=== PATIENT | female | born 1955 | race Caucasian/White ===

== ENCOUNTER → 2017-04-25 | Outpatient (CLI) | payer BC ==
--- NOTE | 2017-04-26 13:15 | MG ---
HISTORY: SCREENING Comparison: March 18, 2014 FINDINGS: Bilateral CC and MLO projections of the right and left breast were obtained utilizing full field and pushback technique with bilateral sub pectoral saline implants appearing grossly intact. Scattered f ibroglandular tissue is seen to be present without significant interval change. No suspicious manisha ectural distortion, mass or clustered microcalcifications can be observed to suggest malignancy. No skin thickening or nipple retraction is appreciated. No pathological lymphadenopathy can be identif ied. Benign-appearing calcifications and nodules are noted within the right and left breast. IMPRESSION: NO RADIOGRAPHIC EVIDENCE OF MALIGNANCY. ACR CATEGORY 2 - benign findings. FOLLOW-UP EXAM 1 YEAR. Diagnostic CAD was utilized and reviewed. * 0 (ZERO) - ASSESSMENT INCOMPLETE; ADDITIONAL IMAGING IS NEEDED. * 1/1 (ONE) - NEGATIVE. * 2/II (TWO) - BENIGN FINDINGS. * 3/III (THREE) - PROBABLY BENIGN FINDING; SHORT INTERVAL FOLLOW-UP SUGGESTED. * 4/IV (FOUR) - SUSPICIOUS ABNORMALITY; BIOPSY SHOULD BE CONSIDERED. * 5/V - HIGHLY SUSPICIOUS OF MALIGNANCY; BIOPSY SHOULD BE PERFORMED. A NEGATIVE X-RAY REPORT SHOULD NOT DELAY BIOPSY IF A DOMINANT OR CLINICALLY SUSPICIOUS MASS IS PRESENT; 4 TO 8 PERCENT OF CANCERS ARE NOT IDENTIFIED BY X-RAY. A NEGA TIVE REPORT MAY REINFORCE THE CLINICAL IMPRESSION. ADENOSIS AND DENSE BREASTS MAY OBSCURE AN UNDERLY ING NEOPLASM. Reported By:
== END ==
LOC: RAD 09:46
PROVIDERS: ATTEND Family Medicine
DX: Z12.31 Encounter for screening mammogram for malignant neoplasm of breast (principal)
CPT/HCPCS: 77067

== ENCOUNTER 2020-03-04 13:27 | Observation (INO) ==
[2020-03-04 13:32] LABS: ABG ALLEN TEST POS; ABG BASE EXCESS 0.8 mmol/L (-2.0-2.0)
[2020-03-04] MEDS ORDERED: IVERMECTIN PO ONE (13:51)
[2020-03-04] MEDS ORDERED: NS 1000 ML 1,000 ML IV SCH (14:00)
[2020-03-04 14:28] LABS: BASOPHILS % (AUTO) 0.5 % (0.2-1.0); EOSINOPHILS % (AUTO) 0.2 % (0.9-2.9); LYMPHOCYTES # (AUTO) 2.1 X10^3/uL (1.3-2.9); LYMPHOCYTES % (AUTO) 26.8 % (21.0-51.0); MEAN CORPUSCULAR HEMOGLOBIN 30.3 pg (27.0-34.0); MEAN CORPUSCULAR HGB CONC 34.2 g/dL (33.0-35.0); MEAN CORPUSCULAR VOLUME 88.5 fL (80.0-100.0); MEAN PLATELET VOLUME 8.4 fL (7.4-11.0); MONOCYTES # (AUTO) 0.8 x10^3/uL (0.3-0.8); MONOCYTES % (AUTO) 9.4 % (0.0-13.0); NEUTROPHILS # (AUTO) 5.1 x10^3/uL (2.2-4.8); NEUTROPHILS % (AUTO) 63.1 % (42.0-75.0); PLATELET COUNT 262 X10^3/uL (150.0-450.0); RED BLOOD COUNT 4.63 X10^6/uL (3.5-5.4); RED CELL DISTRIBUTION WIDTH 13.2 % (11.6-16.5)
[2020-03-04 14:49] LABS: ALANINE AMINOTRANSFERASE 35 Units/L (12-78); ALBUMIN 3.5 g/dL (3.4-5.0); ALKALINE PHOSPHATASE 71 Units/L (46-116); ASPARTATE AMINO TRANSFERASE 31 Units/L (15-37); BLOOD UREA NITROGEN 24 mg/dL (7-18); CALCIUM 10.1 mg/dL (8.5-10.1); CARBON DIOXIDE 27.1 mmol/L (21-32); CHLORIDE 103 mmol/L (98-107); SODIUM 139 mmol/L (136-145); TOTAL PROTEIN 7.5 g/dL (6.4-8.2); TROPONIN I < 0.02 ng/mL (0-1.5); eGFR NON BLACK RACES 59 (>60)
[2020-03-04 16:05] VITALS: BMI 32.5
[2020-03-04] MEDS ORDERED: IVERMECTIN ONE (16:10)
[2020-03-04] MEDS ORDERED: VIBRAMYCIN PO ONE (16:10)
[2020-03-04] MEDS ORDERED: NS 1000 ML 1,000 ML ONE (16:11)
[2020-03-04] MEDS ORDERED: DECADRON TAB ONE (16:11)
[2020-03-04] MEDS ORDERED: ZINC SULFATE ONE (16:11)
[2020-03-04] MEDS ORDERED: LOVENOX INJ 30 MG SYR SC ONE (16:11)
[2020-03-04] MEDS ORDERED: NS 100 ML IV 100 ML IV ONE (16:13)
[2020-03-04] MEDS: ASCORBIC ACID INJ MULTI-DOSE VIAL 1,500 MG in NS 100 ML IV 100 ML IV SCH ×3 (16:15→22:40)
[2020-03-04] MEDS: IVERMECTIN PO SCH (16:17)
[2020-03-04] MEDS: DECADRON TAB PO SCH (16:17)
[2020-03-04] MEDS: LIPITOR TAB 40 MG PO SCH (16:18)
[2020-03-04] MEDS: LOVENOX INJ 30 MG SYR SC SCH ×2 (16:19→22:41)
[2020-03-04] MEDS: TRICOR TAB 160 MG PO SCH (16:20)
[2020-03-04] MEDS: VIBRAMYCIN PO SCH ×2 (16:20→22:42)
[2020-03-04] MEDS: ZINC SULFATE PO SCH ×2 (16:30→22:42)
[2020-03-04] MEDS: VITAMIN D (1.25MG) PO SCH (16:30)
[2020-03-04] MEDS: VITAMIN A PO SCH (16:42)
[2020-03-04] MEDS: PULMICORT NEB TX 0.5 MG NEB SCH (21:39)
[2020-03-04] MEDS: DUONEB 0.5 MG/3 MG (3 mL) NEB SCH (21:39)
[2020-03-04] MEDS: PEPCID TAB 20 MG PO SCH (22:41)
[2020-03-05] MEDS ORDERED: ASCORBIC ACID INJ MULTI-DOSE VIAL IV ONE ×2 (02:53→08:17)
[2020-03-05] MEDS ORDERED: NS 100 ML IV 100 ML IV ONE ×2 (02:53→08:17)
[2020-03-05] MEDS: ASCORBIC ACID INJ MULTI-DOSE VIAL 1,500 MG in NS 100 ML IV 100 ML IV SCH ×2 (03:18→08:21)
[2020-03-05] MEDS: THIAMINE HCL INJ IVP SCH ×2 (04:43→08:31)
--- NOTE | 2020-03-05 06:25 | RAD ---
HISTORYSOB, COUGHING, FATIQUE WORSENING THE PAST 5 DAYS. COVID POSITIVE ON FebruaryUDYCHEST, 1 VIEWCOMPARISONFINDINGSThe trachea is midline. The cardiac silhouette is unremarkable . The lungs are clear without focal infiltrate or effusion. The bony thorax is unremarkable.IMPRESSIONNo acute cardiopulmonary disease.Electronically signed by: Guzman Figueredo (Mar 05, 2020 06:24:21)
[2020-03-05] MEDS ORDERED: PEPCID TAB 20 MG ONE (08:15)
[2020-03-05] MEDS ORDERED: IVERMECTIN ONE (08:15)
[2020-03-05] MEDS ORDERED: VIBRAMYCIN PO ONE (08:15)
[2020-03-05] MEDS ORDERED: DECADRON TAB ONE (08:15)
[2020-03-05] MEDS ORDERED: LOVENOX INJ 30 MG SYR SC ONE (08:16)
[2020-03-05] MEDS ORDERED: ZINC SULFATE ONE (08:16)
[2020-03-05] MEDS: DECADRON TAB PO SCH (08:21)
[2020-03-05] MEDS: IVERMECTIN PO SCH (08:22)
[2020-03-05] MEDS: ZINC SULFATE PO SCH (08:25)
[2020-03-05] MEDS: PEPCID TAB 20 MG PO SCH (08:26)
[2020-03-05] MEDS: LOVENOX INJ 30 MG SYR SC SCH (08:27)
[2020-03-05] MEDS: VIBRAMYCIN PO SCH (08:27)
[2020-03-05] MEDS: VITAMIN D (1.25MG) PO SCH (08:47)
[2020-03-05] MEDS: TRICOR TAB 160 MG PO SCH (08:47)
[2020-03-05] MEDS: LIPITOR TAB 40 MG PO SCH (08:47)
[2020-03-05] MEDS: VITAMIN A PO SCH (08:47)
[2020-03-05 09:31] LABS: ALANINE AMINOTRANSFERASE 28 Units/L (12-78); ALBUMIN 3.2 g/dL (3.4-5.0); ALKALINE PHOSPHATASE 73 Units/L (46-116); ASPARTATE AMINO TRANSFERASE 30 Units/L (15-37); BASOPHILS % (AUTO) 0.2 % (0.2-1.0); BLOOD UREA NITROGEN 22 mg/dL (7-18); CALCIUM 9.9 mg/dL (8.5-10.1); CARBON DIOXIDE 22.2 mmol/L (21-32); CHLORIDE 103 mmol/L (98-107); COR CA(FOR HYPOALB) 10.5 mg/dL (8.5-10.1); COR NA(FOR HYPERGLY) 141 mmol/L (136-145); CREATININE 1.02 mg/dL (0.55-1.02); EOSINOPHILS % (AUTO) 0.1 % (0.9-2.9); HEMATOCRIT 41.1 % (36.0-47.0); HEMOGLOBIN 13.6 g/dL (12.0-16.0); LYMPHOCYTES # (AUTO) 1.3 X10^3/uL (1.3-2.9); LYMPHOCYTES % (AUTO) 27.3 % (21.0-51.0); MEAN CORPUSCULAR HEMOGLOBIN 30.1 pg (27.0-34.0); MEAN CORPUSCULAR HGB CONC 33.2 g/dL (33.0-35.0); MEAN CORPUSCULAR VOLUME 90.6 fL (80.0-100.0); MEAN PLATELET VOLUME 8.8 fL (7.4-11.0); MONOCYTES # (AUTO) 0.3 x10^3/uL (0.3-0.8); MONOCYTES % (AUTO) 6.1 % (0.0-13.0); NEUTROPHILS # (AUTO) 3.1 x10^3/uL (2.2-4.8); NEUTROPHILS % (AUTO) 66.3 % (42.0-75.0); PLATELET COUNT 284 X10^3/uL (150.0-450.0); RED BLOOD COUNT 4.54 X10^6/uL (3.5-5.4); RED CELL DISTRIBUTION WIDTH 13.5 % (11.6-16.5); SODIUM 139 mmol/L (136-145); TOTAL PROTEIN 7.4 g/dL (6.4-8.2); WHITE BLOOD COUNT 4.7 X10^3/uL (3.6-10.0); eGFR NON BLACK RACES 58 (>60)
[2020-03-05] MEDS: DUONEB 0.5 MG/3 MG (3 mL) NEB SCH (09:59)
[2020-03-05] MEDS: PULMICORT NEB TX 0.5 MG NEB SCH (09:59)
[2020-03-05 12:38] VITALS: BP 132/69
[2020-03-06] MEDS ORDERED: VITAMIN D3 125 mcg (5,000 UNITS) PO SCH (09:00)
[2020-03-06] MEDS ORDERED: VITAMIN A PO SCH (09:00)
== END 2020-03-05 14:02 | disposition home or self-care (01) ==
LOC: OBS
PROVIDERS: ADMIT Obstetrics & Gynecology Obstetrics; ATTEND Obstetrics & Gynecology Obstetrics

== ENCOUNTER 2022-04-02 06:26 | Observation (INO) ==
[2022-04-02] MEDS ORDERED: ANCEF VIAL 1 GRAM ONE (06:40)
[2022-04-02] MEDS ORDERED: NS 100 ML IV 100 ML ONE (06:41)
[2022-04-02] MEDS: LR 1,000 ML IV 0 ML IV ONE ×2 (06:41)
[2022-04-02] MEDS ORDERED: NS 1,000 ML IV 1,000 ML ONE ×2 (06:53→08:28)
[2022-04-02] MEDS ORDERED: BACTROBAN TOPICAL OINT ONE (07:15)
[2022-04-02] MEDS ORDERED: PEPCID 20 MG VIAL ONE (07:28)
[2022-04-02] MEDS ORDERED: ZOFRAN INJ 4 MG VIAL ONE (07:28)
[2022-04-02] MEDS ORDERED: FENTANYL VIAL INJ 100 mcg ONE (07:38)
[2022-04-02] MEDS ORDERED: VERSED ONE (07:38)
[2022-04-02] MEDS ORDERED: KETAMINE 50 MG/5 ML-NACL SYRNG ONE (07:38)
[2022-04-02] MEDS ORDERED: ULTANE GAS IN ONE (07:39)
[2022-04-02] MEDS ORDERED: ZEMURON 100 MG VIAL ONE (07:46)
[2022-04-02] MEDS ORDERED: DECADRON INJ ONE (07:46)
[2022-04-02] MEDS ORDERED: XYLOCAINE 2 % (PLAIN) ONE (07:47)
[2022-04-02] MEDS ORDERED: DIPRIVAN VIAL 20 ML ONE (07:47)
[2022-04-02] MEDS ORDERED: OFIRMEV IV 1000 MG VIAL 1,000 MG/100 ML VIAL IV ONE (07:47)
[2022-04-02] MEDS ORDERED: BRIDION ONE (07:47)
[2022-04-02] MEDS ORDERED: LACRI-LUBE S.O.P. ONE (07:54)
[2022-04-02] MEDS ORDERED: DILAUDID INJ ONE (08:12)
[2022-04-02] MEDS ORDERED: TORADOL 30 MG VIAL ONE (09:03)
[2022-04-02] MEDS ORDERED: BARHEMSYS INJ IVP PRN (09:13)
[2022-04-02] MEDS ORDERED: BENADRYL INJ 50 MG VIAL IVP PRN (09:13)
[2022-04-02] MEDS ORDERED: DILAUDID INJ IVP PRN (09:13)
[2022-04-02] MEDS ORDERED: ZOFRAN INJ 4 MG VIAL IVP PRN (09:13)
[2022-04-02] MEDS: D5 1/2 NS 1,000 ML 1,000 ML IV SCH ×2 (11:34→18:53)
[2022-04-02] MEDS: MORPHINE SULFATE INJ 2 MG INJ IVP PRN (23:15)
[2022-04-03] MEDS: D5 1/2 NS 1,000 ML 1,000 ML IV SCH ×3 (01:55→20:45)
[2022-04-03 05:07] LABS: BASOPHILS % (AUTO) 0.1 % (0.2-1.0); EOSINOPHILS % (AUTO) 0.3 % (0.9-2.9); HEMATOCRIT 32.5 % (36.0-47.0); HEMOGLOBIN 11.2 g/dL (12.0-16.0); LYMPHOCYTES # (AUTO) 2.1 X10^3/uL (1.3-2.9); LYMPHOCYTES % (AUTO) 20.4 % (21.0-51.0); MEAN CORPUSCULAR HEMOGLOBIN 30.1 pg (27.0-34.0); MEAN CORPUSCULAR HGB CONC 34.6 g/dL (33.0-35.0); MEAN CORPUSCULAR VOLUME 86.8 fL (80.0-100.0); MEAN PLATELET VOLUME 8.2 fL (7.4-11.0); MONOCYTES # (AUTO) 0.7 x10^3/uL (0.3-0.8); MONOCYTES % (AUTO) 6.5 % (0.0-13.0); NEUTROPHILS # (AUTO) 7.6 x10^3/uL (2.2-4.8); NEUTROPHILS % (AUTO) 72.7 % (42.0-75.0); RED BLOOD COUNT 3.74 X10^6/uL (3.5-5.4); WHITE BLOOD COUNT 10.4 X10^3/uL (3.6-10.0)
[2022-04-03 05:19] LABS: ALANINE AMINOTRANSFERASE 30 Units/L (12-78); ALBUMIN 2.8 g/dL (3.4-5.0); ALKALINE PHOSPHATASE 48 Units/L (46-116); ASPARTATE AMINO TRANSFERASE 27 Units/L (15-37); BLOOD UREA NITROGEN 9 mg/dL (7-18); CALCIUM 8.1 mg/dL (8.5-10.1); CARBON DIOXIDE 26.6 mmol/L (21-32); CHLORIDE 111 mmol/L (98-107); COR CA(FOR HYPOALB) 9.1 mg/dL (8.5-10.1); CREATININE 0.59 mg/dL (0.55-1.02); SODIUM 144 mmol/L (136-145); TOTAL PROTEIN 5.6 g/dL (6.4-8.2); eGFR NON BLACK RACES > 60 (>60)
[2022-04-03] MEDS: MORPHINE SULFATE INJ 2 MG INJ IVP PRN ×2 (06:10→20:17)
[2022-04-03] MEDS ORDERED: NORCO 5/325 MG TAB PO PRN (07:25)
--- NOTE | 2022-04-03 07:52 | DR.PROGNOT ---
HOSPITAL PROGRESS NOTE Progress Note for Day of: Progress Note Date: 04/03/22 Chief Complaint Chief Complaint: somewhat anxious otherwise doing fairly well . Bilirubin , LFT are all normal .. moderate drainage in TELMA . Febrile . Past Medical Family Social History Allergies: Allergies No Known Drug Allergies Allergy (Verified 03/04/20 13:54) Vital Signs Vital Signs: Temperature 98.4 F Pulse Rate 74 Respiratory Rate 14 Blood Pressure [Right Arm] 132/69 Blood Pressure 126/58 O2 Sat by Pulse Oximetry 99 Physical Exam Oriented: Normal GI:Auscultation: Normal GI: Tenderness: Other (soft, flat abdomen withmoderate RUQ tenderness ) Mood Description: Calm Speech Pattern: Clear Laboratory and Diagnostics Result Diagrams: 04/03/22 04:30 04/03/22 04:30 Labs: Laboratory WBC 10.4 X10^3/uL (3.6-10.0) H 04/03/22 04:30 RBC 3.74 X10^6/uL (3.5-5.4) 04/03/22 04:30 Hgb 11.2 g/dL (12.0-16.0) L 04/03/22 04:30 Hct 32.5 % (36.0-47.0) L 04/03/22 04:30 MCV 86.8 fL (80.0-100.0) 04/03/22 04:30 MCH 30.1 pg (27.0-34.0) 04/03/22 04:30 MCHC 34.6 g/dL (33.0-35.0) 04/03/22 04:30 RDW 14.0 % (11.6-16.5) 04/03/22 04:30 Plt Count 295 X10^3/uL (150.0-450.0) 04/03/22 04:30 MPV 8.2 fL (7.4-11.0) 04/03/22 04:30 Neut % (Auto) 72.7 % (42.0-75.0) 04/03/22 04:30 Lymph % (Auto) 20.4 % (21.0-51.0) L 04/03/22 04:30 [place] % (Auto) 6.5 % (0.0-13.0) 04/03/22 04:30 Eos % (Auto) 0.3 % (0.9-2.9) L 04/03/22 04:30 Baso % (Auto) 0.1 % (0.2-1.0) L 04/03/22 04:30 Neut # (Auto) 7.6 x10^3/uL (2.2-4.8) H 04/03/22 04:30 Lymph # (Auto) 2.1 X10^3/uL (1.3-2.9) 04/03/22 04:30 [place] # (Auto) 0.7 x10^3/uL (0.3-0.8) 04/03/22 04:30 Eos # (Auto) 0.0 x10^3/uL (0.0-0.2) 04/03/22 04:30 Baso # (Auto) 0.0 X10^3/uL (0.0-0.1) 04/03/22 04:30 Absolute Nucleated RBC 0.0 /100WBC 04/03/22 04:30 Sodium 144 mmol/L (136-145) 04/03/22 04:30 Corrected Sodium TNP 04/03/22 04:30 Potassium 3.5 mmol/L (3.5-5.1) 04/03/22 04:30 Chloride 111 mmol/L (98-107) H 04/03/22 04:30 Carbon Dioxide 26.6 mmol/L (21-32) 04/03/22 04:30 BUN 9 mg/dL (7-18) 04/03/22 04:30 Creatinine 0.59 mg/dL (0.55-1.02) 04/03/22 04:30 Est GFR (MDRD) Af Amer > 60 (>60) 04/03/22 04:30 Est GFR (MDRD) Non-Af > 60 (>60) 04/03/22 04:30 Glucose 104 mg/dL (65-99) H 04/03/22 04:30 POC Glucose (mg/dL) 141 mg/dL (65-99) H 04/02/22 06:52 Calcium 8.1 mg/dL (8.5-10.1) L 04/03/22 04:30 Corrected Calcium 9.1 mg/dL (8.5-10.1) 04/03/22 04:30 Total Bilirubin 0.30 mg/dL (0.2-1.0) 04/03/22 04:30 AST 27 Units/L (15-37) 04/03/22 04:30 ALT 30 Units/L (12-78) 04/03/22 04:30 Alkaline Phosphatase 48 Units/L (46-116) 04/03/22 04:30 Total Protein 5.6 g/dL (6.4-8.2) L 04/03/22 04:30 Albumin 2.8 g/dL (3.4-5.0) L 04/03/22 04:30 Globulin 2.8 g/dL (2.5-4.5) 04/03/22 04:30 Albumin/Globulin Ratio 1.0 Ratio (1.1-2.1) L 04/03/22 04:30 Tissue Pathology To follow 04/02/22 08:39 Assessment and Plan 1: po op lap meng and liver Bx 2: to advance diet and possible discharge today .. 3: fatty liver with scaring s/p Bx
[2022-04-03] MEDS: ZOFRAN INJ 4 MG VIAL IVP PRN ×2 (12:00→20:29)
[2022-04-04] MEDS: D5 1/2 NS 1,000 ML 1,000 ML IV SCH (03:17)
--- NOTE | 2022-04-04 08:20 | DR.PROGNOT ---
HOSPITAL PROGRESS NOTE Progress Note for Day of: Progress Note Date: 04/04/22 Chief Complaint Chief Complaint: was vomiting last night and refused NGT .. no BM so far . WBC normal ,afebrile .. Past Medical Family Social History Allergies: Allergies No Known Drug Allergies Allergy (Verified 03/04/20 13:54) Vital Signs Vital Signs: Temperature 98.2 F Pulse Rate 70 Respiratory Rate 20 Blood Pressure [Right Arm] 132/69 Blood Pressure 145/65 O2 Sat by Pulse Oximetry 97 Physical Exam Oriented: Normal GI:Auscultation: Normal GI: Tenderness: Other Mood Description: Calm Speech Pattern: Clear and Appropriate Laboratory and Diagnostics Result Diagrams: 04/03/22 04:30 04/03/22 04:30 Labs: Laboratory WBC 10.4 X10^3/uL (3.6-10.0) H 04/03/22 04:30 RBC 3.74 X10^6/uL (3.5-5.4) 04/03/22 04:30 Hgb 11.2 g/dL (12.0-16.0) L 04/03/22 04:30 Hct 32.5 % (36.0-47.0) L 04/03/22 04:30 MCV 86.8 fL (80.0-100.0) 04/03/22 04:30 MCH 30.1 pg (27.0-34.0) 04/03/22 04:30 MCHC 34.6 g/dL (33.0-35.0) 04/03/22 04:30 RDW 14.0 % (11.6-16.5) 04/03/22 04:30 Plt Count 295 X10^3/uL (150.0-450.0) 04/03/22 04:30 MPV 8.2 fL (7.4-11.0) 04/03/22 04:30 Neut % (Auto) 72.7 % (42.0-75.0) 04/03/22 04:30 Lymph % (Auto) 20.4 % (21.0-51.0) L 04/03/22 04:30 [place] % (Auto) 6.5 % (0.0-13.0) 04/03/22 04:30 Eos % (Auto) 0.3 % (0.9-2.9) L 04/03/22 04:30 Baso % (Auto) 0.1 % (0.2-1.0) L 04/03/22 04:30 Neut # (Auto) 7.6 x10^3/uL (2.2-4.8) H 04/03/22 04:30 Lymph # (Auto) 2.1 X10^3/uL (1.3-2.9) 04/03/22 04:30 [place] # (Auto) 0.7 x10^3/uL (0.3-0.8) 04/03/22 04:30 Eos # (Auto) 0.0 x10^3/uL (0.0-0.2) 04/03/22 04:30 Baso # (Auto) 0.0 X10^3/uL (0.0-0.1) 04/03/22 04:30 Absolute Nucleated RBC 0.0 /100WBC 04/03/22 04:30 Sodium 144 mmol/L (136-145) 04/03/22 04:30 Corrected Sodium TNP 04/03/22 04:30 Potassium 3.5 mmol/L (3.5-5.1) 04/03/22 04:30 Chloride 111 mmol/L (98-107) H 04/03/22 04:30 Carbon Dioxide 26.6 mmol/L (21-32) 04/03/22 04:30 BUN 9 mg/dL (7-18) 04/03/22 04:30 Creatinine 0.59 mg/dL (0.55-1.02) 04/03/22 04:30 Est GFR (MDRD) Af Amer > 60 (>60) 04/03/22 04:30 Est GFR (MDRD) Non-Af > 60 (>60) 04/03/22 04:30 Glucose 104 mg/dL (65-99) H 04/03/22 04:30 POC Glucose (mg/dL) 141 mg/dL (65-99) H 04/02/22 06:52 Calcium 8.1 mg/dL (8.5-10.1) L 04/03/22 04:30 Corrected Calcium 9.1 mg/dL (8.5-10.1) 04/03/22 04:30 Total Bilirubin 0.30 mg/dL (0.2-1.0) 04/03/22 04:30 AST 27 Units/L (15-37) 04/03/22 04:30 ALT 30 Units/L (12-78) 04/03/22 04:30 Alkaline Phosphatase 48 Units/L (46-116) 04/03/22 04:30 Total Protein 5.6 g/dL (6.4-8.2) L 04/03/22 04:30 Albumin 2.8 g/dL (3.4-5.0) L 04/03/22 04:30 Globulin 2.8 g/dL (2.5-4.5) 04/03/22 04:30 Albumin/Globulin Ratio 1.0 Ratio (1.1-2.1) L 04/03/22 04:30 Tissue Pathology To follow 04/02/22 08:39 Assessment and Plan 1: po op lap meng and liver Bx 2: to advance diet and possible discharge today .. 3: fatty liver with scaring s/p Bx
[2022-04-04 11:07] VITALS: BP 130/59
== END 2022-04-04 11:16 | disposition home or self-care (01) ==
LOC: ICU 06:26 → SURG1 06:26 → ICU 10:24
PROVIDERS: ADMIT Surgery; ATTEND Surgery
PROC: LIVERBX (2022-04-02 07:45)